=== PATIENT | male | born 1950 | race Caucasian/White ===

== ENCOUNTER 2022-07-25 19:10 | Emergency (ER) | payer MEDICARE, BC ==
[2022-07-25 20:55] LABS: ESTIMATED GFR 91 mL/min (>60)
[2022-07-25] MEDS ORDERED: Sodium Chloride 0.9% 100 ML IV ONE (22:19)
[2022-07-25] MEDS ORDERED: Iopamidol 612 MG/ML 100 ML Bottle IV ONE (22:19)
[2022-07-25] MEDS ORDERED: cefTRIAXone 1 GM in Sodium Chloride 0.9% 50 ML IV ONE (22:41)
[2022-07-25] MEDS ORDERED: Sodium Chloride 0.9% 1,000 ML IV SCH (22:45)
== END 2022-07-26 00:56 | disposition home or self-care (01) ==
LOC: JP.ED 19:10
DX: N30.91 Cystitis, unspecified with hematuria (principal)
CPT/HCPCS: 36415; 74177; 80053; 81001; 85025; 87086; 96365; 99284; J0696; J3490; J7030; Q9967

== ENCOUNTER 2025-06-24 13:40 | Emergency (ER) | payer MEDICARE, BC ==
[2025-06-24 14:01] LABS: BASOPHILS ABSOLUTE AUTO 0.05 K/uL (0.00-0.10); BASOPHILS PERCENT AUTO 0.5 % (0.1-1.3); EOSINOPHILS ABSOLUTE AUTO 0.26 K/uL (0.00-0.40); EOSINOPHILS PERCENT AUTO 2.8 % (0.0-5.4); IMMATURE GRAN ABSOLUTE AUTO 0.03 K/uL (0.00-0.23); IMMATURE GRAN PERCENT AUTO 0.3 % (0.0-0.7); LYMPHOCYTES ABSOLUTE AUTO 2.71 K/uL (0.8-3.3); LYMPHOCYTES PERCENT AUTO 29.0 % (11.4-47.7); MONOCYTES ABSOLUTE AUTO 0.70 K/uL (0.20-0.90); MONOCYTES PERCENT AUTO 7.5 % (3.3-12.6); NEUTROPHILS ABSOLUTE AUTO 5.61 K/uL (1.0-7.6); NEUTROPHILS PERCENT AUTO 59.9 % (40.0-78.1); PLATELET COUNT,PLT 202 K/uL (130-375); RED BLOOD CELL COUNT 4.65 M/uL (4.14-5.76); WHITE BLOOD CELL COUNT,WBC 9.4 K/uL (3.2-11.0)
[2025-06-24 14:22] LABS: INR 1.0; PTT,PARTIAL THROMBOPLSTIN TIME 23.4 sec (21.8-27.3)
[2025-06-24 14:26] LABS: A/G RATIO 1.2 (1.2-2.2); ALANINE AMINOTRANSFERASE,ALT 41 U/L (12-78); ASPARTATE AMNIOTRANSFERASE,AST 23 U/L (15-37); BILIRUBIN TOTAL 0.4 mg/dL (0.2-1.0); BLOOD UREA NITROGEN,BUN 17 mg/dL (7-18); CARBON DIOXIDE,CO2 26 mmol/L (21-32); CHLORIDE,CL 105 mmol/L (100-108); CREATININE 0.9 mg/dL (0.8-1.3); EST CRCL DRUG DOSING (CG) 83.72 mL/min; ESTIMATED GFR 90 mL/min (>60); GLUCOSE RANDOM 141 mg/dL (74-106); POTASSIUM,K 4.1 mmol/L (3.6-5.2); PROTEIN TOTAL,TP 7.8 g/dL (6.4-8.2); SODIUM,NA 140 mmol/L (140-148)
[2025-06-24 14:28] LABS: CREATINE KINASE,CK 150 U/L (39-308)
[2025-06-24] MEDS: Sodium Chloride 0.9% 10 ML Syringe FLUSH PRN (15:04)
== END 2025-06-24 18:15 | disposition home or self-care (01) ==
LOC: JP.ED 13:40
DX: G45.9 Transient cerebral ischemic attack, unspecified (principal); Z79.84 Long term (current) use of oral hypoglycemic drugs; Z79.899 Other long term (current) drug therapy
CPT/HCPCS: 36415; 70450; 70450-26; 70496; 70496-26; 70498; 70498-26; 80053; 80307; 82550; 82947; 83605; 84484; 85025; 85610; 85730; 86140; 93005; 93010; 99284; 99285; A9270-GY

== ENCOUNTER 2025-08-03 09:37 | Inpatient (IN) | payer MEDICARE, BC ==
[2025-08-03] MEDS ORDERED: Naloxone 0.4 MG/ML SDV IVPUSH PRN (10:48)
[2025-08-03 10:57] LABS: PLATELET COUNT,PLT 112 K/uL (130-375); RED BLOOD CELL COUNT 4.06 M/uL (4.14-5.76); WHITE BLOOD CELL COUNT,WBC 12.2 K/uL (3.2-11.0)
[2025-08-03] MEDS: Ondansetron 4 MG/2 ML SDV IVPUSH ONE (11:21)
[2025-08-03 11:24] LABS: A/G RATIO 0.6 (1.2-2.2); ALANINE AMINOTRANSFERASE,ALT 33 U/L (12-78); ASPARTATE AMNIOTRANSFERASE,AST 40 U/L (15-37); ATYPICAL LYMPHOCYTES OCCASIONAL; BAND ABSOLUTE MAN 1.34 K/uL; BAND PERCENT MAN 11 % (5-11); BILIRUBIN TOTAL 0.4 mg/dL (0.2-1.0); BLOOD UREA NITROGEN,BUN 57 mg/dL (7-18); CARBON DIOXIDE,CO2 22 mmol/L (21-32); CHLORIDE,CL 96 mmol/L (100-108); EST CRCL DRUG DOSING (CG) 14.90 mL/min; ESTIMATED GFR 11 mL/min (>60); GLUCOSE RANDOM 188 mg/dL (74-106); LYMPHOCYTES ABSOLUTE MAN 1.10 K/uL (0.8-3.3); LYMPHOCYTES PERCENT MAN 9 % (24-44); MONOCYTES ABSOLUTE MAN 0.85 K/uL (0.20-0.90); MONOCYTES PERCENT MAN 7 % (2-6); NEUTROPHILS ABSOLUTE MAN 8.91 K/uL (1.0-7.6); POTASSIUM,K 4.7 mmol/L (3.6-5.2); PROTEIN TOTAL,TP 6.6 g/dL (6.4-8.2); SEG NEUTROPHILS PERCENT MAN 73 % (36-66); SODIUM,NA 135 mmol/L (140-148)
[2025-08-03 11:33] LABS: CREATININE 5.2 mg/dL (0.8-1.3)
[2025-08-03 12:13] LABS: CORONAVIRUS COVID-19 NAA NEGATIVE (NEGATIVE); INFLUENZA A NAA NEGATIVE (NEGATIVE); INFLUENZA B NAA NEGATIVE (NEGATIVE); RESPIRATORY SYNCYTIAL VIR NAA NEGATIVE (NEGATIVE)
[2025-08-03 14:36] LABS: APPEARANCE,URINE TURBID (CLEAR); GLUCOSE,URINE NEGATIVE (NEGATIVE); OCCULT BLOOD,URINE LARGE (NEGATIVE)
[2025-08-03 14:51] LABS: SQUAMOUS EPITHELIAL CELLS,UR RARE /HPF; UROTHELIAL CELLS,URINE NOT SEEN /HPF
[2025-08-03] MEDS ORDERED: Glucose Gel 15 GM in 37.5 GM Tube PO PRN (15:35)
[2025-08-03] MEDS ORDERED: Sodium Chloride 0.9% 10 ML Syringe FLUSH PRN (15:35)
[2025-08-03] MEDS ORDERED: 50% Dextrose in Water 50 ML Syringe IV PRN (15:35)
[2025-08-04 06:05] LABS: PLATELET COUNT,PLT 82 K/uL (130-375); RED BLOOD CELL COUNT 3.54 M/uL (4.14-5.76); WHITE BLOOD CELL COUNT,WBC 9.8 K/uL (3.2-11.0)
[2025-08-04 06:31] LABS: BAND ABSOLUTE MAN 0.49 K/uL; BAND PERCENT MAN 5 % (5-11); EOSINOPHILS ABSOLUTE MAN 0.20 K/uL (0.00-0.40); EOSINOPHILS PERCENT MAN 2 % (2-4); LYMPHOCYTES ABSOLUTE MAN 0.29 K/uL (0.8-3.3); LYMPHOCYTES PERCENT MAN 3 % (24-44); MONOCYTES ABSOLUTE MAN 0.59 K/uL (0.20-0.90); MONOCYTES PERCENT MAN 6 % (2-6); NEUTROPHILS ABSOLUTE MAN 8.23 K/uL (1.0-7.6); SEG NEUTROPHILS PERCENT MAN 84 % (36-66)
[2025-08-04 06:32] LABS: A/G RATIO 0.5 (1.2-2.2); ALANINE AMINOTRANSFERASE,ALT 48 U/L (12-78); ASPARTATE AMNIOTRANSFERASE,AST 53 U/L (15-37); BILIRUBIN TOTAL 0.3 mg/dL (0.2-1.0); BLOOD UREA NITROGEN,BUN 74 mg/dL (7-18); CARBON DIOXIDE,CO2 19 mmol/L (21-32); CHLORIDE,CL 101 mmol/L (100-108); EST CRCL DRUG DOSING (CG) 11.92 mL/min; ESTIMATED GFR 8 mL/min (>60); GLUCOSE RANDOM 116 mg/dL (74-106); POTASSIUM,K 4.9 mmol/L (3.6-5.2); PROTEIN TOTAL,TP 5.7 g/dL (6.4-8.2); SODIUM,NA 136 mmol/L (140-148)
[2025-08-04 06:33] LABS: CREATININE 6.5 mg/dL (0.8-1.3)
[2025-08-04] MEDS: Fenofibrate,Micronized 67 MG Cap PO SCH (08:46)
[2025-08-04] MEDS: Magnesium Sulfate 2 GM/50 mL 2 GM in Premix Bag 1 BAG IV SCH (08:57)
[2025-08-05 05:15] LABS: PLATELET COUNT,PLT 93.0 K/uL (130-375); RED BLOOD CELL COUNT 3.83 M/uL (4.14-5.76); WHITE BLOOD CELL COUNT,WBC 10.7 K/uL (3.2-11.0)
[2025-08-05 05:24] LABS: CARBON DIOXIDE,CO2 17.0 mmol/L (21-32); CHLORIDE,CL 97.0 mmol/L (100-108); EST CRCL DRUG DOSING (CG) 10.06 mL/min; ESTIMATED GFR 7.0 mL/min (>60); GLUCOSE RANDOM 70.0 mg/dL (74-106); POTASSIUM,K 4.3 mmol/L (3.6-5.2); SODIUM,NA 133.0 mmol/L (140-148)
[2025-08-05] MEDS: Ondansetron 4 MG/2 ML SDV IV PRN (05:25)
[2025-08-05 05:39] LABS: BLOOD UREA NITROGEN,BUN 95.0 mg/dL (7-18); CREATININE 7.7 mg/dL (0.8-1.3)
== END 2025-08-05 13:30 | DRG 872 ==
LOC: JP.ED 09:37 → JP.MS 14:31
PROVIDERS: ADMIT Hospitalist; ATTEND Internal Medicine
DX: N39.0 Urinary tract infection, site not specified (principal); A41.9 Sepsis, unspecified organism; E78.00 Pure hypercholesterolemia, unspecified; N17.9 Acute kidney failure, unspecified; N10 Acute pyelonephritis; N30.00 Acute cystitis without hematuria; M54.9 Dorsalgia, unspecified; G89.29 Other chronic pain; R10.9 Unspecified abdominal pain; R65.20 Severe sepsis without septic shock; H54.7 Unspecified visual loss; E11.42 Type 2 diabetes mellitus with diabetic polyneuropathy; D72.829 Elevated white blood cell count, unspecified; I10 Essential (primary) hypertension; M19.90 Unspecified osteoarthritis, unspecified site; E86.0 Dehydration; Z86.73 Personal history of transient ischemic attack (TIA), and cerebral infarction without residual deficits; Z79.899 Other long term (current) drug therapy; Z79.82 Long term (current) use of aspirin; Z98.890 Other specified postprocedural states; Z79.84 Long term (current) use of oral hypoglycemic drugs
CPT/HCPCS: 36415; 71250; 74176; 80053; 80307; 83605; 83690; 83735; 84484; 85025; 86140; 87040 ×2; 87077; 87088; 87186; 87637; 93005; 93010; 96361; 96365; 96375; 99285 ×2; J0696; J2405; J7030; 51702; 80048; 81001; 85027; 87086; 97161-GP; 99223; 99233; 99239; A9270-GY; C1758; J1171; J1650; J2470; J3475